=== PATIENT | male | born 1965 | race Caucasian/White ===

== ENCOUNTER 2017-07-09 06:43 | Day surgery (SDC) | payer OTHER ==
[2017-07-09] MEDS ORDERED: Propofol 200 MG/20 ML SDV IV ONE (06:44)
[2017-07-09] MEDS ORDERED: Lactated Ringers 1,000 ML IV SCH (06:45)
[2017-07-09] MEDS ORDERED: Simethicone Drops 40 MG/0.6 ML 30 ML Bottle ONE (08:05)
--- NOTE | 2017-07-09 08:24 | PCM.OPNOTE ---
- General Post-Op/Procedure Note Date of Surgery/Procedure: 07/09/17 Operative Procedure(s): c scope. hemorrhoid banding Findings: nl colon internal hemorrhoids left lateral, right post and ant Pre Op Diagnosis: bleeding per rectum Post-Op Diagnosis: nl colon. internal hemorrhoids. left lateral, right post and ant Anesthesia Technique: MAC Primary Surgeon: Lance Sarabia Anesthesia Provider: Ciro Whipple Pathology: none Complications: None Condition: Good Free Text/Narrative:: see dictation
--- NOTE | 2017-07-09 10:10 | OR ---
DATE OF OPERATION: 07/09/2017 SURGEON: Lance Sarabia MD PROCEDURE PERFORMED: Colonoscopy and hemorrhoid banding. PREOPERATIVE DIAGNOSIS: Bleeding per rectum. POSTOPERATIVE DIAGNOSIS: Internal hemorrhoids. Normal colonoscopy. INDICATIONS FOR PROCEDURE: This is a 51-year-old white male who is referred with the above-mentioned issues. He was offered and accepted a colonoscopy as well as a possible hemorrhoid banding. DESCRIPTION OF OPERATION: After an excellent IV sedation was administered, digital rectal exam was performed. No marked abnormality was noted. Flexible colonoscope was inserted and advanced to the cecum without difficulty. The prep was excellent. The following findings were noted. Ascending colon, unremarkable. Transverse colon, unremarkable. Descending colon, unremarkable. Sigmoid, unremarkable. Rectum, unremarkable. On retroflexing the scope, there were some bleeding internal hemorrhoids. After removing the scope, the anal speculum was inserted and the left lateral, right anterior, and right posterior columns were banded with double bands. The patient tolerated the procedure well, and was taken to recovery in good condition. /[id number] THERESE/KENA
--- NOTE | 2017-07-09 10:10 | PREOP ---
ADMISSION DATE: 07/09/2017 CHIEF COMPLAINT: Hernia and rectal bleeding. HISTORY OF PRESENT ILLNESS: A 51-year-old white male referred for a skin scope and possible hemorrhoid banding. Never had a colonoscopy in the past. Has a history of bright red blood per rectum and was banded several years ago at [facility]. He denies any family history of colon cancer or colon polyps. He also has an umbilical hernia, which has been present for many years. It is reducible, does not hurt. MEDICATIONS: 1. Lipitor 20 mg daily. 2. Hydrochlorothiazide 25 mg daily. 3. Ambien 10 mg as needed. 4. Zantac 150 mg twice a day. 5. Aspirin 81 mg once per day. PAST MEDICAL HISTORY: Includes hyperlipidemia, insomnia, gastroesophageal reflux disease, hemorrhoids, essential hypertension, and chronic rhinitis as well as migraines. PAST SURGICAL HISTORY: Significant for the hemorrhoid banding in the past. FAMILY HISTORY: Significant for skin cancer, dementia, and hypertension. The patient is , with 3 children. Works at college. He does not smoke. Has an occasional drink, 1 beer per week. REVIEW OF SYSTEMS: Constitutional, HEENT, eyes, respiratory, and cardiovascular were all negative. Gastrointestinal is positive for anal bleeding. Genitourinary and musculoskeletal were negative. PHYSICAL EXAMINATION: GENERAL: This is a well-developed, well-nourished white male, appearing in no acute distress. VITAL SIGNS: Reviewed. He is stable, afebrile. HEENT: Grossly within normal limits. LUNGS: Clear to auscultation. HEART: Had a regular rate and rhythm. ABDOMEN: Soft with a reducible umbilical hernia. ASSESSMENT: Bright red blood per rectum. PLAN: Colonoscopy with possible hemorrhoid banding. Procedure and risks explained to the patient to include bleeding, infection, perforation. The patient expresses understanding, and he asked us to proceed. /[id number] /MODL
== END 2017-07-09 09:50 | disposition home or self-care (01) ==
LOC: FB.SDS 06:43
PROVIDERS: ATTEND Surgery
DX: K64.8 Other hemorrhoids (principal); I10 Essential (primary) hypertension; E78.2 Mixed hyperlipidemia; K21.9 Gastro-esophageal reflux disease without esophagitis; J31.0 Chronic rhinitis; Z79.82 Long term (current) use of aspirin; Z79.899 Other long term (current) drug therapy
CPT/HCPCS: 45378; 46221; A9270; J2704; J7120; 00812-QZ

== ENCOUNTER 2017-10-09 06:48 | Day surgery (SDC) | payer OTHER ==
[~2017-10-09 06:48] MED LIST: Lactated Ringers 1,000 ML IV SCH; Sodium Chloride 0.9% 10 ML Syringe FLUSH PRN
[2017-10-09] MEDS ORDERED: ceFAZolin 2 GM in Premix Bag 1 BAG IV ONE (07:45)
[2017-10-09] MEDS ORDERED: Lidocaine 1% with EPINEPHrine 1:100,000 20 ML MDV INJECT ONE (08:14)
[2017-10-09] MEDS ORDERED: Bupivacaine 0.5% 30 ML SDV INJECT ONE (08:14)
--- NOTE | 2017-10-09 08:39 | PCM.OPNOTE ---
- General Post-Op/Procedure Note Date of Surgery/Procedure: 10/09/17 Operative Procedure(s): umbilical hernia repair with mesh Findings: 2 cm umbilical hernia Pre Op Diagnosis: umbilical hernia Post-Op Diagnosis: Same Anesthesia Technique: General LMA, Local (6 ml 1 % ldio with epi/0.5% buvipicaine) Primary Surgeon: Lance Sarabia Anesthesia Provider: Yeni Barriga Pathology: none Complications: None Condition: Good Free Text/Narrative:: see dictation
[2017-10-09] MEDS ORDERED: Acetaminophen/HYDROcodone 325-5 MG Tab PO ONE (09:43)
--- NOTE | 2017-10-09 10:58 | OR ---
DATE OF OPERATION: 10/09/2017 SURGEON: Lance Sarabia MD PROCEDURE PERFORMED: Umbilical hernia repair. PREOPERATIVE DIAGNOSIS: Umbilical hernia without mention of obstruction or gangrene. POSTOPERATIVE DIAGNOSIS: Umbilical hernia without mention of obstruction or gangrene. INDICATIONS FOR PROCEDURE: This is a 51-year-old white male with an umbilical hernia that is symptomatic. He was offered and accepted repair. INTRAOPERATIVE FINDINGS: Total of 6 mL of 1:1 mixture of 1% lidocaine with epinephrine 0.5% bupivacaine was used and a Ventralex ST hernia patch reference #[id number], expiration date 2019-06-28 with a lot #[id number] was used. DESCRIPTION OF PROCEDURE: After an excellent LMA anesthetic was administered, the patient was prepped and draped in usual sterile manner. Area was infiltrated with our local mixture and a field block and then a curvilinear incision was carried down. Blunt dissection was carried out exposing the hernia sac down to the level of the anterior abdominal wall. The hernia sac was then transected off the posterior aspect of the umbilicus and the incarcerated fat was also trimmed away. The edge of the hernia sac was then removed and passed off the field. Several bleeding points controlled with electrocautery. Airplane was developed then between the fat and the anterior abdominal wall and the Ventrio air locks ST hernia patch was then inserted. This was approximately 6 cm in diameter. It was then snugged up against the anterior abdominal wall and sewn in using a running 0 Vicryl. The 2 tails were clipped in the process of incorporating the mesh into our suture line. The area was irrigated. The umbilicus was tacked anteriorly with a [id number] 0 Vicryl and the skin was closed with a running subcu 4-0 Vicryl. Needle, sponge, and instrument counts were reported as correct. The patient was taken to recovery room in good condition. /[id number] /MODL
== END 2017-10-09 11:20 | disposition home or self-care (01) ==
LOC: FB.SDS 06:48
PROVIDERS: ATTEND Surgery
DX: K42.9 Umbilical hernia without obstruction or gangrene (principal); K21.9 Gastro-esophageal reflux disease without esophagitis; E78.2 Mixed hyperlipidemia; I10 Essential (primary) hypertension; Z79.82 Long term (current) use of aspirin; Z79.899 Other long term (current) drug therapy
CPT/HCPCS: 49585; A9270; C1781; J0690; J7120

== ENCOUNTER 2020-10-06 08:17 | Day surgery (SDC) | payer OTHER ==
[2020-10-06] MEDS ORDERED: Rocuronium 100 MG/10 ML MDV IV ONE (08:18)
[2020-10-06] MEDS ORDERED: Ketorolac 30 MG/ML SDV IVPUSH ONE (08:18)
[2020-10-06] MEDS ORDERED: Propofol 200 MG/20 ML SDV IV ONE (08:18)
[2020-10-06] MEDS ORDERED: Midazolam 1 MG/ML 2 ML SDV IV ONE (08:18)
[2020-10-06] MEDS ORDERED: fentaNYL 100 MCG/2 ML SDV IV ONE (08:18)
[2020-10-06] MEDS ORDERED: Succinylcholine 200 MG/10 ML MDV IV ONE (08:18)
[2020-10-06] MEDS ORDERED: Dexamethasone 4 MG/ML 5 ML MDV IVPUSH ONE (08:18)
[2020-10-06] MEDS ORDERED: Lactated Ringers 1,000 ML IV ONE (08:18)
[2020-10-06] MEDS ORDERED: HYDROmorphone 2 MG/ML SDV IV ONE (08:18)
[2020-10-06] MEDS ORDERED: Ondansetron 4 MG/2 ML SDV IVPUSH ONE (08:18)
[2020-10-06] MEDS ORDERED: Neostigmine Methylsulfate 10 MG/10 ML MDV IVPUSH ONE (08:18)
[2020-10-06] MEDS ORDERED: Lidocaine 2% 5 ML SDV INJECT ONE (08:18)
[2020-10-06] MEDS ORDERED: Glycopyrrolate 0.2 MG/ML 5 ML MDV IV ONE (08:18)
[2020-10-06] MEDS ORDERED: ceFAZolin 2 GM in Sodium Chloride 0.9% 100 ML IV ONE (09:45)
[2020-10-06] MEDS ORDERED: Bupivacaine 0.5% 30 ML SDV INJECT ONE (09:47)
[2020-10-06] MEDS ORDERED: Lidocaine 1% with EPINEPHrine 1:100,000 20 ML MDV INJECT ONE (09:47)
--- NOTE | 2020-10-06 10:27 | PCM.OPNOTE ---
- General Post-Op/Procedure Note Date of Surgery/Procedure: 10/06/20 Operative Procedure(s): lap bilateral inguinal hernia repair with mesh Findings: bilateral hernia cord lipoma Pre Op Diagnosis: bilateral inguinal hernia no obstruction or gangrene Post-Op Diagnosis: Same Anesthesia Technique: General ET Tube, Local (8 ml 1 % lido with epi/0.5% buvipicaine) Primary Surgeon: Lance Sarabia Anesthesia Provider: Burton Asher Pathology: none Complications: None Condition: Good Free Text/Narrative:: see dictation #[id number]
[2020-10-06] MEDS ORDERED: Acetaminophen/HYDROcodone 325-5 MG Tab PO PRN (10:31)
--- NOTE | 2020-10-07 10:05 | OR ---
DATE OF OPERATION: 10/06/2020 SURGEON: Lance Sarabia MD PROCEDURE PERFORMED: Laparoscopic bilateral inguinal hernia repair. PREOPERATIVE DIAGNOSIS: Bilateral inguinal hernia. POSTOPERATIVE DIAGNOSIS: Bilateral inguinal hernia. INDICATIONS FOR PROCEDURE: This is a 54-year-old white male, referred with a symptomatic left inguinal hernia, and on exam was noted to have a small one on the right as well. He was offered and accepted a bilateral repair laparoscopically. INTRAOPERATIVE FINDINGS: 1. 8 mL of 1:1 mixture of 1% lidocaine with epinephrine and 0.5% bupivacaine was used to infiltrate our trocar sites. 2. Two indirect hernias of preperitoneal fat were also encountered bilaterally, left greater than right. These were repaired with Bard 3D max mesh, lot number [id number], reference number [id number], expiration date 06/28/2024 and [id number], reference number [id number], expiration date 02/27/2024, and these were fixed into place using a Trefis capture, permanent fixation system, lot number [id number], reference number [id number], expiration date 06/28/2021. DESCRIPTION OF OPERATION: After an excellent general anesthetic was administered via endotracheal tube, the patient was prepped and draped in usual sterile manner. The previous incision site just below the umbilicus for an umbilical hernia repair was infiltrated with local. An incision was made through the scar tissue. Sharp dissection was carried out exposing the rectus sheath. This area was infiltrated. An incision was made and blunt dissection was carried out dissecting the rectus muscle laterally. The balloon dissector was then inserted and inflated to maximal pressure dissecting the preperitoneal space down in the inguinal area. This was then removed and the balloon Machelle was inserted, and the patient's preperitoneal space was infiltrated with 15 mmHg using carbon dioxide. The patient was placed in reverse Trendelenburg (it should be noted Leary catheter was placed preoperatively) and two 5 mm ports were placed essentially dividing the distance between the periumbilical Machelle trocar and the symphysis pubis into third. This was done by infiltrating full- thickness local, making a stab incision, and inserting the 2 trocars. Our attention was first turned to the right. Careful blunt dissection was used to take down the remaining thin filmy adhesions. The spermatic cord was identified and the cord lipoma and what appeared to be a small hernia sac was reduced, and the cord was skeletonized in this process using careful blunt dissection. Having completed this, our attention was then turned to the left side as well and again repeating the process, careful blunt dissection was carried out again mobilizing preperitoneal fat and small hernia sac. Both the internal rings were slightly enlarged suggestive of indirect hernias bilaterally. The mesh was first placed on the left side. It was rolled up and delivered in through the Machelle trocar. It was then unrolled covering the hernia sac in running the distance from the pelvic bone laterally. This was then tacked into position using 2 captures covering the defect quite nicely. The process was repeated on the right side again rolling it up and delivering it through the Machelle trocar, extending it out fully medial to laterally, and again placing 2 captures on the pelvic brim to hold it into position. Two instruments were then used to keep the mesh completely extended as the gas was released and the gas was removed. These were then removed after releasing the pressure in the preperitoneal space and the trocars were removed. The fascial defect was then closed with a running 0 Vicryl and 4-0 subcu Vicryl were used to close the skin. Needle, sponge, and instrument counts were reported as correct. The patient was taken to recovery room in good condition. /[id number] THERESE/KENA
== END 2020-10-06 13:35 | disposition home or self-care (01) ==
LOC: FB.SDS 08:17 → EDUNIT# 09:45 → FB.SDS 13:35
PROVIDERS: ATTEND Surgery
DX: K40.20 Bilateral inguinal hernia, without obstruction or gangrene, not specified as recurrent (principal); D17.6 Benign lipomatous neoplasm of spermatic cord; E78.2 Mixed hyperlipidemia; I10 Essential (primary) hypertension; Z79.899 Other long term (current) drug therapy; Z98.890 Other specified postprocedural states
CPT/HCPCS: 94150; A9270-GY; C1713; C1781; J0330; J0690; J1100; J1170; J1885; J2250; J2405; J2704; J2710; J3010; J3490; J7120